=== PATIENT | female | born 1985 | race Caucasian/White ===

== ENCOUNTER 2017-01-12 05:59 | Emergency (ER) | payer MEDICAID ==
[~2017-01-12] VITALS: Ht 165.1 cm; Wt 74.4 kg
[~2017-01-12 05:59] MED LIST: NONE PER PT
[2017-01-12] MEDS ORDERED: MORPHINE SULFATE 4 MG/ML, 1ML ONE ×2 (06:21→07:22)
[2017-01-12] MEDS ORDERED: ONDANSETRON 2MG/ML, 2ML ONE (06:22)
[2017-01-12] MEDS: MORPHINE SULFATE 4 MG/ML, 1ML IVPush PRN ×2 (06:28→07:25)
[2017-01-12] MEDS ORDERED: SODIUM CHLORIDE 0.9% 1,000ML IVBOLUS ONE (06:30)
[2017-01-12] MEDS ORDERED: ONDANSETRON 2MG/ML, 2ML IVPush ONE (06:30)
[2017-01-12 06:44] LABS: ASPARTATE AMINO TRANSFERASE 17 U/L (15-37); BLOOD UREA NITROGEN 17 mg/dL (7-18)
[2017-01-12 07:06] VITALS: BP 106/54
[2017-01-12 08:24] LABS: PATH.CAST-FLAG NOT PRESENT; SPERM-FLAG NOT PRESENT; SRC-FLAG NOT PRESENT; XTAL-FLAG NOT PRESENT; YLC-FLAG NOT PRESENT
== END 2017-01-12 09:21 | disposition home or self-care (01) ==
LOC: ED 07:07
DX: N20.1 Calculus of ureter (principal); R10.32 Left lower quadrant pain
CPT/HCPCS: 36415; 74176; 80053; 81001; 83690; 84703; 85025; 96361; 96374; 96375; 96376; 99285; J2405; J7030